=== PATIENT | female | born 1995 | race Caucasian/White ===

== ENCOUNTER 2017-09-08 17:19 | Inpatient (IN) ==
[2017-09-08] MEDS ORDERED: MEPERIDINE 25 MG/1 ML VIAL IV PRN (17:48)
[2017-09-08] MEDS ORDERED: ONDANSETRON 4 MG/2 ML VIAL IV PRN (17:48)
[2017-09-08] MEDS ORDERED: BUTORPHANOL 2 MG/ML VIAL IV PRN (17:48)
[2017-09-08] MEDS ORDERED: LACTATED RINGERS 250 ML IV ONE (17:48)
[2017-09-08] MEDS ORDERED: diphenhydrAMINE 50 MG/1 ML VIAL IV PRN ×2 (17:54)
[2017-09-08] MEDS ORDERED: ePHEDrine 50 MG/ML AMP IV PRN (17:54)
[2017-09-08] MEDS ORDERED: PROMETHAZINE 25 MG/1 ML VIAL IM ONE (17:54)
[2017-09-08] MEDS ORDERED: ONDANSETRON 4 MG/2 ML VIAL IV ONE (17:54)
[2017-09-08] MEDS ORDERED: hydrOXYzine HCL 25 MG/1 ML VIAL IM PRN (17:54)
[2017-09-08] MEDS ORDERED: CITRIC ACID/SODIUM CITRATE 30 ML UDCUP PO ONE (17:56)
[2017-09-08] MEDS ORDERED: FAMOTIDINE 20 MG/2 ML VIAL IV ONE (17:56)
[2017-09-08] MEDS ORDERED: OXYTOCIN/LR 20 UNIT/1,000 ML BAG IV SCH (18:00)
[2017-09-08] MEDS ORDERED: CLINDAMYCIN INJ 900 MG in PREMIX 1 EACH IV SCH (18:00)
[2017-09-08] MEDS ORDERED: fentaNYL 2 MCG/ROPIV 0.2% EPID 150 ML EPIDURAL SCH (18:00)
[2017-09-08] MEDS ORDERED: LACTATED RINGERS 1,000 ML IV SCH (18:00)
[2017-09-08 18:10] LABS: Basophils % 0.3 % (0.0-0.8); Eosinophils # 0.1 10*3/uL (0.0-0.87); Eosinophils % 0.9 % (0.00-10.9); Hematocrit 37.6 VOL% (35.7-47.0); Hemoglobin 12.8 GM/DL (12.0-16.0); Immature Granulocytes % 2.5 %; Immature Granulocytes Absolute 0.38 #; Lymphocytes # 3.9 10*3/uL (1.4-4.0); Lymphocytes % 25.4 % (21.3-54.2); Mean Corpuscular Hemoglobin 33 PG (27-34); Mean Corpuscular Volume 96.2 FL (87-102); Mean Platelet Volume 10.8 FL (9.6-12.0); Monocytes # 1.2 10*3/uL (0.11-0.8); Monocytes % 7.9 % (1.7-12.7); Neutrophils # 9.7 10*3/uL (1.4-7.4); Platelet Count 259 T/CUMM (130-400); Red Blood Count 3.91 MC/CUMM (3.8-5.5); Red Cell Distribution Width 14.4 % (9.3-17.3); White Blood Count 15.4 T/CUMM (4-12)
[2017-09-08 22:20] LABS: Cord Arterial Blood HCO3 25.3 MMOL/L
[2017-09-08 22:23] LABS: Cord Venous Blood HCO3 23.3 MMOL/L; Cord Venous Blood PCO2 39.4 MMHG; Cord Venous Blood PO2 32.1 MMHG
[2017-09-09] MEDS ORDERED: WITCH HAZEL PADS 100/JAR TOP PRN (00:36)
[2017-09-09] MEDS ORDERED: BISACODYL 10 MG SUPP RECTAL PRN (00:36)
[2017-09-09] MEDS ORDERED: HYDROCORTISONE 2.5% RECTAL CREAM 30 GM TUBE TOP PRN (00:36)
[2017-09-09] MEDS ORDERED: LANOLIN 50% CREAM 0.3 OZ TUBE TOP PRN (00:36)
[2017-09-09] MEDS ORDERED: OXYTOCIN/LR 20 UNIT/1,000 ML BAG IV ONE (00:36)
[2017-09-09] MEDS ORDERED: ACETAMINOPHEN 325 MG TABLET PO PRN (00:36)
[2017-09-09] MEDS ORDERED: ONDANSETRON 4 MG/2 ML VIAL IV PRN (00:36)
[2017-09-09] MEDS ORDERED: oxyCODONE/ACETAMINOPHEN 5-325 MG TABLET PO PRN (00:36)
[2017-09-09] MEDS ORDERED: RHO(D) IMMUNE GLOBULIN 300 MCG SYRINGE IM ONE (00:36)
[2017-09-09] MEDS ORDERED: MEASLES/MUMPS/RUBELLA VACCINE 0.5 ML VIAL SUBCUT ONE (00:36)
[2017-09-09] MEDS ORDERED: DIPH/TET/ACEL PERT BOOSTER VACCINE 0.5 ML VIAL IM ONE (00:36)
[2017-09-09] MEDS ORDERED: BENZOCAINE 20%/MENTHOL 0.5% SPRAY 56 GM CAN TOP PRN (00:36)
[2017-09-09] MEDS: IBUPROFEN 800 MG TABLET PO PRN ×3 (02:47→17:36)
[2017-09-09 06:29] LABS: Basophils # 0.1 10*3/uL (0.0-0.2); Basophils % 0.3 % (0.0-0.8); Eosinophils # 0.2 10*3/uL (0.0-0.87); Eosinophils % 0.9 % (0.00-10.9); Hematocrit 35.1 VOL% (35.7-47.0); Hemoglobin 11.8 GM/DL (12.0-16.0); Immature Granulocytes % 1.3 %; Immature Granulocytes Absolute 0.23 #; Lymphocytes % 22.6 % (21.3-54.2); Mean Corpuscular HGB Conc 33.6 GM/DL (32-36); Mean Corpuscular Hemoglobin 32 PG (27-34); Mean Corpuscular Volume 95.9 FL (87-102); Monocytes # 1.5 10*3/uL (0.11-0.8); Monocytes % 8.1 % (1.7-12.7); Neutrophils # 11.9 10*3/uL (1.4-7.4); Neutrophils % 66.8 % (38.7-73.9); Platelet Count 246 T/CUMM (130-400); Red Blood Count 3.66 MC/CUMM (3.8-5.5); Red Cell Distribution Width 14.2 % (9.3-17.3); White Blood Count 17.8 T/CUMM (4-12)
[2017-09-09] MEDS: DOCUSATE SODIUM 100 MG CAPSULE PO SCH ×2 (09:17→21:35)
[2017-09-09] MEDS: oxyCODONE/ACETAMINOPHEN 5-325 MG TABLET PO PRN ×2 (11:36→17:39)
[2017-09-10] MEDS: IBUPROFEN 800 MG TABLET PO PRN (00:46)
[2017-09-10] MEDS: oxyCODONE/ACETAMINOPHEN 5-325 MG TABLET PO PRN (00:47)
[2017-09-10 07:21] VITALS: BP 119/59
[2017-09-10] MEDS: DOCUSATE SODIUM 100 MG CAPSULE PO SCH (08:59)
== END 2017-09-10 11:20 | disposition home or self-care (01) | DRG 560 ==
LOC: N.LDOUT 17:19 → N.LD 17:20 → N.OB 09-09 00:30
PROVIDERS: ADMIT Obstetrics & Gynecology; ATTEND Obstetrics & Gynecology

== ENCOUNTER 2019-07-08 11:31 | Observation (INO) ==
[2019-07-08 12:20] LABS: Basophils % 0.2 % (0.0-0.8); Eosinophils # 0.1 10*3/uL (0.0-0.87); Eosinophils % 1.1 % (0.00-10.9); Hematocrit 31.1 VOL% (35.7-47.0); Hemoglobin 10.3 GM/DL (12.0-16.0); Immature Granulocytes % 1.2 %; Immature Granulocytes Absolute 0.14 #; Lymphocytes # 3.2 10*3/uL (1.4-4.0); Lymphocytes % 26.8 % (21.3-54.2); Mean Corpuscular HGB Conc 33.1 GM/DL (32-36); Mean Corpuscular Volume 97.8 FL (87-102); Mean Platelet Volume 9.5 FL (9.6-12.0); Monocytes % 6.6 % (1.7-12.7); Neutrophils % 64.1 % (38.7-73.9); Platelet Count 381 T/CUMM (130-400); Red Blood Count 3.18 MC/CUMM (3.8-5.5); Red Cell Distribution Width 13.8 % (9.3-17.3); White Blood Count 12.1 T/CUMM (4-12)
[2019-07-08] MEDS: LACTATED RINGERS 1,000 ML IV SCH ×2 (12:47→18:13)
[2019-07-08] MEDS: MEPERIDINE 50 MG/1 ML VIAL IV PRN ×2 (12:48→19:50)
[2019-07-08] MEDS: ONDANSETRON 4 MG/2 ML VIAL IV PRN ×2 (12:48→19:50)
[2019-07-08 17:27] VITALS: BP 88/45
[2019-07-08 18:23] LABS: Hematocrit 26.9 VOL% (35.7-47.0)
[2019-07-09 00:36] LABS: Hematocrit 26.8 VOL% (35.7-47.0); Hemoglobin 8.8 GM/DL (12.0-16.0)
[2019-07-09] MEDS: LACTATED RINGERS 1,000 ML IV SCH (06:05)
[2019-07-09 06:29] LABS: Hematocrit 27.1 VOL% (35.7-47.0); Hemoglobin 8.7 GM/DL (12.0-16.0)
[2019-07-09] MEDS ORDERED: ACETAMINOPHEN 500 MG TABLET PO PRN (09:45)
[2019-07-09 12:04] LABS: Hematocrit 27.7 VOL% (35.7-47.0); Hemoglobin 8.9 GM/DL (12.0-16.0)
== END 2019-07-09 13:21 | disposition home or self-care (01) ==
LOC: INTOOBSV 11:31 → N.LD 11:31
PROVIDERS: ADMIT Obstetrics & Gynecology; ATTEND Obstetrics & Gynecology

== ENCOUNTER 2019-07-14 01:29 | Inpatient (IN) ==
[2019-07-14] MEDS ORDERED: LACTATED RINGERS 500 ML IV PRN (02:10)
[2019-07-14] MEDS ORDERED: ONDANSETRON 4 MG/2 ML VIAL IV PRN ×2 (02:10→10:37)
[2019-07-14] MEDS ORDERED: MEPERIDINE 50 MG/1 ML VIAL IM PRN (02:10)
[2019-07-14] MEDS ORDERED: miSOPROStoL 200 MCG TABLET VAG ONE (02:11)
[2019-07-14] MEDS ORDERED: LACTATED RINGERS 1,000 ML IV PRN ×2 (02:13)
[2019-07-14] MEDS ORDERED: LACTATED RINGERS 1,000 ML IV SCH (02:30)
[2019-07-14 03:06] LABS: Basophils % 0.2 % (0.0-0.8); Eosinophils # 0.2 10*3/uL (0.0-0.87); Hemoglobin 7.8 GM/DL (12.0-16.0); Immature Granulocytes % 2.2 %; Immature Granulocytes Absolute 0.38 #; Lymphocytes # 4.2 10*3/uL (1.4-4.0); Lymphocytes % 24.3 % (21.3-54.2); Mean Corpuscular HGB Conc 33.9 GM/DL (32-36); Mean Corpuscular Volume 93.9 FL (87-102); Mean Platelet Volume 9.6 FL (9.6-12.0); NRBC # 0.03 10*3/uL; Neutrophils % 65.3 % (38.7-73.9); Platelet Count 264 T/CUMM (130-400); Red Blood Count 2.45 MC/CUMM (3.8-5.5); Red Cell Distribution Width 14.7 % (9.3-17.3); White Blood Count 17.1 T/CUMM (4-12)
[2019-07-14] MEDS ORDERED: SODIUM CHLORIDE 0.9% 1,000 ML IV PRN (03:32)
[2019-07-14] MEDS: OXYTOCIN/LR 20 UNIT/1,000 ML BAG IV PRN ×2 (04:36→06:07)
[2019-07-14] MEDS ORDERED: BISACODYL 10 MG SUPP RECTAL PRN (10:37)
[2019-07-14] MEDS ORDERED: MEASLES/MUMPS/RUBELLA VACCINE 0.5 ML VIAL SUBCUT ONE (10:37)
[2019-07-14] MEDS ORDERED: HYDROCORTISONE 2.5% RECTAL CREAM 30 GM TUBE TOP PRN (10:37)
[2019-07-14] MEDS ORDERED: RHO(D) IMMUNE GLOBULIN 300 MCG SYRINGE IM ONE (10:37)
[2019-07-14] MEDS ORDERED: IBUPROFEN 800 MG TABLET PO PRN (10:37)
[2019-07-14] MEDS ORDERED: OXYTOCIN/LR 20 UNIT/1,000 ML BAG IV ONE (10:37)
[2019-07-14] MEDS ORDERED: WITCH HAZEL PADS 100/JAR TOP PRN (10:37)
[2019-07-14] MEDS ORDERED: LANOLIN 50% CREAM 0.3 OZ TUBE TOP PRN (10:37)
[2019-07-14] MEDS ORDERED: BENZOCAINE 20%/MENTHOL 0.5% SPRAY 56 GM CAN TOP PRN (10:37)
[2019-07-14] MEDS ORDERED: ACETAMINOPHEN 325 MG TABLET PO PRN (10:37)
[2019-07-14] MEDS ORDERED: DIPH/TET/ACEL PERT BOOSTER VACCINE 0.5 ML VIAL IM ONE (10:37)
[2019-07-14] MEDS ORDERED: oxyCODONE/ACETAMINOPHEN 5-325 MG TABLET PO PRN ×2 (10:37)
[2019-07-14 11:33] LABS: Eosinophils # 0.1 10*3/uL (0.0-0.87); Eosinophils % 0.9 % (0.00-10.9); Immature Granulocytes % 1.8 %; Immature Granulocytes Absolute 0.27 #; Mean Corpuscular HGB Conc 32.9 GM/DL (32-36); Red Cell Distribution Width 14.7 % (9.3-17.3)
[2019-07-14 11:40] LABS: Basophils % 0.2 % (0.0-0.8); Hematocrit 28.6 VOL% (35.7-47.0); Lymphocytes # 2.7 10*3/uL (1.4-4.0); Mean Corpuscular Volume 94.7 FL (87-102); Mean Platelet Volume 9.6 FL (9.6-12.0); Monocytes % 6.7 % (1.7-12.7); Neutrophils % 72.4 % (38.7-73.9); Platelet Count 258 T/CUMM (130-400); White Blood Count 14.8 T/CUMM (4-12)
[2019-07-14 11:41] LABS: Hemoglobin 9.4 GM/DL (12.0-16.0); Red Blood Count 3.02 MC/CUMM (3.8-5.5)
[2019-07-14] MEDS: DOCUSATE SODIUM 100 MG CAPSULE PO SCH (23:01)
[2019-07-15 06:17] LABS: Basophils % 0.2 % (0.0-0.8); Eosinophils # 0.2 10*3/uL (0.0-0.87); Eosinophils % 1.4 % (0.00-10.9); Hemoglobin 9.4 GM/DL (12.0-16.0); Immature Granulocytes % 2.6 %; Immature Granulocytes Absolute 0.32 #; Lymphocytes # 3.5 10*3/uL (1.4-4.0); Lymphocytes % 28.1 % (21.3-54.2); Mean Corpuscular HGB Conc 33.6 GM/DL (32-36); Mean Platelet Volume 9.7 FL (9.6-12.0); Monocytes % 6.8 % (1.7-12.7); Neutrophils % 60.9 % (38.7-73.9); Platelet Count 254 T/CUMM (130-400); Red Blood Count 3.01 MC/CUMM (3.8-5.5); Red Cell Distribution Width 14.9 % (9.3-17.3); White Blood Count 12.3 T/CUMM (4-12)
[2019-07-15] MEDS ORDERED: FERROUS SULFATE 325 MG TABLET PO SCH (09:00)
[2019-07-15 09:06] VITALS: BP 111/61
[2019-07-15] MEDS: DOCUSATE SODIUM 100 MG CAPSULE PO SCH (09:55)
== END 2019-07-15 11:30 | disposition home or self-care (01) | DRG 541 ==
LOC: N.LDOUT 01:29 → N.LD 01:30 → N.OB 11:02
PROVIDERS: ADMIT Obstetrics & Gynecology; ATTEND Obstetrics & Gynecology

== ENCOUNTER 2020-12-13 00:06 | Inpatient (IN) ==
[2020-12-13] MEDS ORDERED: LACTATED RINGERS 1,000 ML IV PRN (00:17)
[2020-12-13] MEDS ORDERED: ONDANSETRON 4 MG/2 ML VIAL IV PRN (00:17)
[2020-12-13 00:42] LABS: Basophils # 0.1 10*3/uL (0.0-0.2); Basophils % 0.4 % (0.0-0.8); Eosinophils # 0.2 10*3/uL (0.0-0.87); Eosinophils % 1.3 % (0.00-10.9); Hematocrit 35.5 VOL% (35.7-47.0); Hemoglobin 11.2 GM/DL (12.0-16.0); Lymphocytes # 3.2 10*3/uL (1.4-4.0); Mean Corpuscular HGB Conc 31.5 GM/DL (32-36); Mean Corpuscular Volume 88.1 FL (87-102); Mean Platelet Volume 9.6 FL (9.6-12.0); Monocytes % 9.9 % (1.7-12.7); NRBC # 0.03 10*3/uL; Neutrophils % 61.4 % (38.7-73.9); Platelet Count 337 T/CUMM (130-400); Red Blood Count 4.03 MC/CUMM (3.8-5.5); Red Cell Distribution Width 15.1 % (9.3-17.3); White Blood Count 13.4 T/CUMM (4-12)
[2020-12-13 01:06] LABS: Alanine Aminotransferase 19 U/L (13-56); Albumin 2.2 G/DL (3.4-5.0); Alkaline Phosphatase 110 U/L (45-117); Aspartate Amino Transferase 20 U/L (0-37); Bilirubin,Total < 0.39 MG/DL (0.20-1.00); Blood Urea Nitrogen 10 MG/DL (7-18); Calcium 8.8 MG/DL (8.5-10.1); Carbon Dioxide 22 MMOL/L (21-32); Estimated Glom Filtration Rate 158 ML/MIN; Glucose 97 MG/DL (74-106); Sodium 136 MMOL/L (136-145); Total Protein 5.9 G/DL (6.4-8.2)
[2020-12-13 01:08] LABS: Band Neutrophils 4 % (0-10); Eosinophils 2 % (0-10); Lymphocytes 24 % (20-55); Segmented Neutrophils 60 % (50-85); Total Cells Counted 100
[2020-12-13 01:13] LABS: Atypical Lymphocytes Few; Hypochromasia Slight; Platelet Estimate Normal; Polychromasia Few; Reactive Lymphocytes 1+
[2020-12-13] MEDS ORDERED: MEPERIDINE 50 MG/1 ML VIAL IV PRN (06:26)
[2020-12-13] MEDS ORDERED: CITRIC ACID/SODIUM CITRATE 30 ML UDCUP PO ONE (07:13)
[2020-12-13] MEDS ORDERED: LACTATED RINGERS 1,000 ML IV ONE (07:13)
[2020-12-13] MEDS ORDERED: FAMOTIDINE 20 MG/2 ML VIAL IV ONE (07:13)
[2020-12-13] MEDS ORDERED: NALOXONE 0.4 MG/ML VIAL IV PRN (07:14)
[2020-12-13] MEDS ORDERED: ePHEDrine 50 MG/ML VIAL IV PRN (07:14)
[2020-12-13] MEDS ORDERED: diphenhydrAMINE 50 MG/1 ML VIAL IV PRN (07:14)
[2020-12-13] MEDS ORDERED: LACTATED RINGERS 1,000 ML IV SCH (07:30)
[2020-12-13] MEDS ORDERED: fentaNYL 2 MCG/ROPIV 0.2% EPID 100 ML EPIDURAL SCH (07:30)
[2020-12-13] MEDS: OXYTOCIN/LR 20 UNIT/1,000 ML BAG IV SCH ×2 (08:46→12:53)
[2020-12-13] MEDS ORDERED: miSOPROStoL 200 MCG TABLET ONE (11:24)
[2020-12-13] MEDS ORDERED: METHYLERGONOVINE 0.2 MG/1 ML AMP ONE (11:25)
[2020-12-13] MEDS ORDERED: CARBOPROST TROMETHAMINE 250 MCG/ML AMP IM ONE (11:25)
[2020-12-13] MEDS ORDERED: TRANEXAMIC ACID 1,000 MG/10 ML VIAL ONE (11:25)
[2020-12-13] MEDS ORDERED: OXYTOCIN/LR 20 UNIT/1,000 ML BAG IV ONE ×2 (11:25→14:11)
[2020-12-13 11:51] LABS: Cord Arterial Blood HCO3 19.4 MMOL/L
[2020-12-13 11:52] LABS: Cord Venous Blood HCO3 24.1 MMOL/L; Cord Venous Blood PO2 26.2 MMHG
[2020-12-13 13:50] LABS: Bilirubin,Urine Negative (Negative); Blood, Urine Negative (Negative); Glucose,Urine (UA) Negative (Negative); Ketones,Urine Negative (Negative); Mucus,Urine Occasional /LPF (Occasional); Nitrite,Urine Negative (Negative); Protein,Urine Negative; RBC,Urine 1 /HPF (0-4); Squamous Epithelial Cell,Urine Occasional /HPF (0-10); Urine Appearance CLEAR (Clear); Urine Color Yellow (Yellow); Urine Specific Gravity 1.013 (1.001-1.035); Urine Urobilinogen < 2.0 EU/DL (0.2-1.0)
[2020-12-13] MEDS ORDERED: MEASLES/MUMPS/RUBELLA VACCINE 0.5 ML VIAL SUBCUT ONE (14:11)
[2020-12-13] MEDS ORDERED: DIPH/TET/ACEL PERT BOOSTER VACCINE 0.5 ML VIAL IM ONE (14:11)
[2020-12-13] MEDS ORDERED: WITCH HAZEL PADS 100/JAR TOP PRN (14:11)
[2020-12-13] MEDS ORDERED: oxyCODONE/ACETAMINOPHEN 5-325 MG TABLET PO PRN ×2 (14:11)
[2020-12-13] MEDS ORDERED: LANOLIN 50% CREAM 0.3 OZ TUBE TOP PRN (14:11)
[2020-12-13] MEDS ORDERED: RHO(D) IMMUNE GLOBULIN 300 MCG SYRINGE IM ONE (14:11)
[2020-12-13] MEDS ORDERED: BENZOCAINE 20%/MENTHOL 0.5% SPRAY 56 GM CAN TOP PRN (14:11)
[2020-12-13] MEDS ORDERED: BISACODYL 10 MG SUPP RECTAL PRN (14:11)
[2020-12-13] MEDS ORDERED: HYDROCORTISONE 2.5% RECTAL CREAM 30 GM TUBE TOP PRN (14:11)
[2020-12-13] MEDS ORDERED: ACETAMINOPHEN 325 MG TABLET PO PRN (14:11)
[2020-12-13] MEDS: IBUPROFEN 800 MG TABLET PO PRN ×2 (15:14→21:55)
[2020-12-13] MEDS: DOCUSATE SODIUM 100 MG CAPSULE PO SCH (21:55)
[2020-12-14 06:19] LABS: Basophils # 0.1 10*3/uL (0.0-0.2); Basophils % 0.4 % (0.0-0.8); Eosinophils # 0.2 10*3/uL (0.0-0.87); Eosinophils % 1.2 % (0.00-10.9); Hematocrit 34.8 VOL% (35.7-47.0); Hemoglobin 10.9 GM/DL (12.0-16.0); Immature Granulocytes % 2.2 %; Immature Granulocytes Absolute 0.33 #; Lymphocytes # 3.1 10*3/uL (1.4-4.0); Mean Corpuscular HGB Conc 31.3 GM/DL (32-36); Mean Platelet Volume 9.9 FL (9.6-12.0); Monocytes % 9.1 % (1.7-12.7); Neutrophils % 66.1 % (38.7-73.9); Platelet Count 317 T/CUMM (130-400); Red Blood Count 3.91 MC/CUMM (3.8-5.5); Red Cell Distribution Width 15.2 % (9.3-17.3); White Blood Count 14.9 T/CUMM (4-12)
[2020-12-14] MEDS: IBUPROFEN 800 MG TABLET PO PRN ×2 (08:19→21:31)
[2020-12-14] MEDS: DOCUSATE SODIUM 100 MG CAPSULE PO SCH ×2 (09:20→21:31)
[2020-12-14] MEDS: AMOXICILLIN 500 MG CAPSULE PO SCH ×2 (10:55→21:31)
[2020-12-15] MEDS: IBUPROFEN 800 MG TABLET PO PRN (06:57)
[2020-12-15 08:29] VITALS: BP 125/53
[2020-12-15] MEDS: DOCUSATE SODIUM 100 MG CAPSULE PO SCH (09:15)
[2020-12-15] MEDS: AMOXICILLIN 500 MG CAPSULE PO SCH (09:22)
[2020-12-15] MEDS ORDERED: ESCITALOPRAM 10 MG TABLET PO ONE (10:34)
== END 2020-12-15 11:45 | disposition home or self-care (01) | DRG 560 ==
LOC: N.LD 00:06 → N.OB 13:40
PROVIDERS: ADMIT Obstetrics & Gynecology; ATTEND Obstetrics & Gynecology